=== PATIENT | female | born 1980 | race Caucasian/White ===

== ENCOUNTER 2017-06-09 10:14 | Emergency (ER) | payer MEDICAID ==
[~2017-06-09] VITALS: Ht 175.3 cm; Wt 56.7 kg
[2017-06-09 10:45] VITALS: BP 96/82
[2017-06-09] MEDS ORDERED: Morphine Sulfate 2mg/ml Inj IVP ONE (10:45)
[2017-06-09 11:02] LABS: EOSINOPHILS % (AUTO) 0.8 % (0.0-3.0); LYMPHOCYTES % (AUTO) 20.2 % (20.0-45.0); MEAN CORPUSCULAR HEMOGLOBIN 29.9 PG (27.0-31.0); MEAN CORPUSCULAR HGB CONC 31.6 G/DL (32.0-36.0); MEAN CORPUSCULAR VOLUME 95 FL (80-99); MEAN PLATELET VOLUME 8.1 FL (6.5-10.1); MONOCYTES % (AUTO) 7.9 % (1.0-10.0); NEUTROPHILS % (AUTO) 70.1 % (45.0-75.0); PLATELET COUNT 253 K/UL (150-450); RED BLOOD COUNT 4.53 M/UL (4.20-5.40); RED CELL DISTRIBUTION WIDTH 10.7 % (11.6-14.8); WHITE BLOOD COUNT 9.1 K/UL (4.8-10.8)
[2017-06-09 11:09] LABS: APPEARANCE,URINE CLEAR; KETONES,URINE 2+ (NEGATIVE); LEUKOCYTE ESTERASE ,URINE 1+ (NEGATIVE); NITRITE,URINE NEGATIVE (NEGATIVE); PH,URINE 7 (4.5-8.0); PROTEIN,URINE 1+ (NEGATIVE); UROBILINOGEN,URINE 1 MG/DL (0.0-1.0)
[2017-06-09 11:11] LABS: ANION GAP 8 mmol/L (5-15); CALCIUM 8.8 MG/DL (8.5-10.1); CARBON DIOXIDE 27 MMOL/L (21-32); CHLORIDE 106 MMOL/L (98-107); CREATININE 0.8 MG/DL (0.55-1.30); GLOMERULAR FILTRATION RATE > 60 mL/min (>60); SODIUM 141 MMOL/L (136-145)
[2017-06-09 11:17] LABS: PROTHROMBIN TIME 10.6 SEC (9.30-11.50)
[2017-06-09 11:22] LABS: RBC,URINE 0-2 /HPF (0 - 2)
[2017-06-09 11:23] LABS: BACTERIA,URINE FEW /HPF; MUCUS,URINE FEW /LPF (NONE/OCC); SQUAMOUS EPITHELIAL CELL,UR FEW /LPF (NONE/OCC)
[2017-06-09 11:24] LABS: ALANINE AMINOTRANSFERASE 24 U/L (12-78); ALBUMIN/GLOBULIN RATIO 1.2 (1.0-2.7); ASPARTATE AMINO TRANSFERASE 19 U/L (15-37); BILIRUBIN,DIRECT 0.2 MG/DL (0.0-0.3); LIPASE 149 U/L (73-393); TOTAL PROTEIN 7.4 G/DL (6.4-8.2)
[2017-06-09] MEDS ORDERED: BENTYL10 MG ORAL (12:02)
[2017-06-09 12:30] VITALS: BP 98/78
--- NOTE | 2017-06-11 11:37 | Cardiology Report ---
APPROVED REPORT EKG Measurement Heart [id number] Atrial fibrillation Abnormal ECG
--- NOTE | 2017-06-11 23:45 | Emergency Room Report ---
History of Present Illness General Chief Complaint: Abdominal Pain Source: Patient Present Illness HPI Patient is a 36-year-old female presented after increased abdominal discomfort. Patient had sudden onset of symptoms associated with some nausea. The patient been noted to be breast-feeding. She reports having increased epigastric pain which radiated to her back. She denies black or bloody stool or hematemesis. The pain was improved by abdominal pressure. She denied recent trauma. Allergies: Coded Allergies: CODEINE (Verified Allergy, Unknown, 06/09/17) Patient History Past Medical History: see triage record Past Surgical History: unable to obtain Now: No Reviewed Nursing Documentation: PMH: Agreed, PSxH: Agreed Nursing Documentation-PMH Past Medical History: No Stated History Review of Systems All Other Systems: negative except mentioned in HPI Physical Exam Vital Signs Date Time Temp Pulse Resp B/P (MAP) Pulse Ox O2 Delivery O2 Flow Rate FiO2 06/09/17 10:17 97.3 68 14 112/71 100 06/09/17 10:45 Room Air Sp02 EP Interpretation: reviewed, normal General Appearance: normal inspection, well appearing, no apparent distress, alert, GCS 15 Head: atraumatic ENT: normal ENT inspection, hearing grossly normal, normal voice Neck: normal inspection, full range of motion, supple, no bony tend Respiratory: normal inspection, lungs clear, normal breath sounds, no respiratory distress, no retraction, no wheezing Cardiovascular #1: regular rate, rhythm, no edema Gastrointestinal: normal inspection, normal bowel sounds, non tender, soft, no guarding, no hernia Genitourinary: no CVA tenderness Musculoskeletal: normal inspection, back normal, normal range of motion Neurologic: normal inspection, alert, oriented x3, responsive, fact checker III-XII nml as tested, speech normal Psychiatric: normal inspection, judgement/insight normal, mood/affect normal Skin: normal inspection, normal color, no rash Medical Decision Making Diagnostic Impression: Primary Impression: Abdominal pain ER Course Patient presented for abdominal pain. Differential diagnoses included ischemic bowel, appendicitis, perforated viscus, abdominal aortic aneurysm, inferior myocardial infarction, viral gastroenteritis. Because of complexity of patient' s case laboratory testing and imaging studies were ordered. The patient's troponin was noted to be normal. EKG interpreted by me showed ectopic atrial rhythm. With a rate approximately 60 without PVCs or ectopy. Troponin was negative.The patient refused IV nausea medications. The patient is advised to follow up with primary care doctor in 1-2 days. The patient is advised that she may need outpatient testing including ultrasound. Patient is advised to return if any worsening condition or if any changes in status that are concerning. Labs Test 06/09/17 10:40 06/09/17 10:50 White Blood Count 9.1 K/UL (4.8-10.8) Red Blood Count 4.53 M/UL (4.20-5.40) Hemoglobin 13.6 G/DL (12.0-16.0) Hematocrit 42.9 % (37.0-47.0) Mean Corpuscular Volume 95 FL (80-99) Mean Corpuscular Hemoglobin 29.9 PG (27.0-31.0) Mean Corpuscular Hemoglobin Concent 31.6 G/DL (32.0-36.0) Red Cell Distribution Width 10.7 % (11.6-14.8) Platelet Count 253 K/UL (150-450) Mean Platelet Volume 8.1 FL (6.5-10.1) Neutrophils (%) (Auto) 70.1 % (45.0-75.0) Lymphocytes (%) (Auto) 20.2 % (20.0-45.0) Monocytes (%) (Auto) 7.9 % (1.0-10.0) Eosinophils (%) (Auto) 0.8 % (0.0-3.0) Basophils (%) (Auto) 1.0 % (0.0-2.0) Prothrombin Time 10.6 SEC (9.30-11.50) Prothromb Time International Ratio 1.0 (0.9-1.1) Activated Partial Thromboplast Time 26 SEC (23-33) D-Dimer 0.26 mg/L FEU (0.00-0.49) Sodium Level 141 MMOL/L (136-145) Potassium Level 4.0 MMOL/L (3.5-5.1) Chloride Level 106 MMOL/L (98-107) Carbon Dioxide Level 27 MMOL/L (21-32) Anion Gap 8 mmol/L (5-15) Blood Urea Nitrogen 12 mg/dL (7-18) Creatinine 0.8 MG/DL (0.55-1.30) Estimat Glomerular Filtration Rate > 60 mL/min (>60) Glucose Level 87 MG/DL (74-106) Calcium Level 8.8 MG/DL (8.5-10.1) Total Bilirubin 1.4 MG/DL (0.2-1.0) Direct Bilirubin 0.2 MG/DL (0.0-0.3) Aspartate Amino Transf (AST/SGOT) 19 U/L (15-37) Alanine Aminotransferase (ALT/SGPT) 24 U/L (12-78) Alkaline Phosphatase 47 U/L (46-116) Troponin I 0.000 ng/mL (0.000-0.056) Total Protein 7.4 G/DL (6.4-8.2) Albumin 4.0 G/DL (3.4-5.0) Globulin 3.4 g/dL Albumin/Globulin Ratio 1.2 (1.0-2.7) Lipase 149 U/L (73-393) Urine Color Yellow Urine Appearance Clear Urine pH 7 (4.5-8.0) Urine Specific [place] 1.010 (1.005-1.035) Urine Protein 1+ (NEGATIVE) Urine Glucose (UA) Negative (NEGATIVE) Urine Ketones 2+ (NEGATIVE) Urine Occult Blood Negative (NEGATIVE) Urine Nitrite Negative (NEGATIVE) Urine Bilirubin Negative (NEGATIVE) Urine Urobilinogen 1 MG/DL (0.0-1.0) Urine Leukocyte Esterase 1+ (NEGATIVE) Urine RBC 0-2 /HPF (0 - 2) Urine WBC 2-4 /HPF (0 - 2) Urine Squamous Epithelial Cells Few /LPF (NONE/OCC) Urine Bacteria Few /HPF (NONE) Urine Mucus Few /LPF (NONE/OCC) EKG Diagnostic Results Rhythm: NSR ST Segments: no acute changes Rhythm Strip Diag. Results EP Interpretation: yes Rhythm: NSR, no PVC's, no ectopy Last Vital Signs Date Time Temp Pulse Resp B/P (MAP) Pulse Ox O2 Delivery O2 Flow Rate FiO2 06/09/17 12:30 97.3 64 14 98/78 98 Room Air Status: improved Disposition: HOME, SELF-CARE Condition: Stable Scripts Dicyclomine Hcl* (BENTYL*) 10 Mg Capsule 10 MG ORAL FOUR TIMES A DAY, #30 CAP Prov: Hardeep Gomez 06/09/17 Patient Instructions: Abdominal Pain, Adult Hardeep Gomez Jun 11, 2017 23:45
== END 2017-06-09 12:30 | disposition home or self-care (01) ==
LOC: EMR 10:41
DX: R10.9 Unspecified abdominal pain (principal); Z88.6 Allergy status to analgesic agent
CPT/HCPCS: 36415; 80053; 81003; 82248; 83690; 84484; 85025; 85379; 85610; 85730; 93005; 99283; J2405

== ENCOUNTER 2017-10-14 07:39 | Emergency (ER) | payer MEDICAID ==
[~2017-10-14] VITALS: Ht 175.3 cm; Wt 58.5 kg
[~2017-10-14 07:39] MED LIST: BENTYL10 MG ORAL
[2017-10-14] MEDS ORDERED: NKM (07:46)
[2017-10-14] MEDS ORDERED: Acetaminophen 500mg (ES) tab ORAL ONE (09:15)
[2017-10-14 09:21] LABS: HEMOGLOBIN 14.7 G/DL (12.0-16.0); MEAN CORPUSCULAR VOLUME 91 FL (80-99); PLATELET COUNT 219 K/UL (150-450); RED BLOOD COUNT 4.52 M/UL (4.20-5.40); RED CELL DISTRIBUTION WIDTH 10.3 % (11.6-14.8); WHITE BLOOD COUNT 11.3 K/UL (4.8-10.8)
[2017-10-14 09:26] LABS: ANION GAP 12 mmol/L (5-15); BLOOD UREA NITROGEN 18 mg/dL (7-18); CALCIUM 8.6 MG/DL (8.5-10.1); CARBON DIOXIDE 23 MMOL/L (21-32); CHLORIDE 102 MMOL/L (98-107); CREATININE 0.8 MG/DL (0.55-1.30); POTASSIUM 3.6 MMOL/L (3.5-5.1); SODIUM 137 MMOL/L (136-145)
[2017-10-14 09:37] LABS: ALANINE AMINOTRANSFERASE 28 U/L (12-78); ALBUMIN 4.1 G/DL (3.4-5.0); ALBUMIN/GLOBULIN RATIO 1.2 (1.0-2.7); ALKALINE PHOSPHATASE 53 U/L (46-116); ASPARTATE AMINO TRANSFERASE 17 U/L (15-37); BILIRUBIN,DIRECT 0.2 MG/DL (0.0-0.3)
[2017-10-14] MEDS ORDERED: DiphenhydrAMINE 50mg/ml Inj IVP ONE (10:00)
[2017-10-14 10:29] LABS: APPEARANCE,URINE SLIGHTLY CLOUDY; BILIRUBIN, URINE NEGATIVE (NEGATIVE); GLUCOSE, URINE (UA) NEGATIVE (NEGATIVE); KETONES,URINE 4+ (NEGATIVE); LEUKOCYTE ESTERASE ,URINE 1+ (NEGATIVE); NITRITE,URINE NEGATIVE (NEGATIVE); PH,URINE 6 (4.5-8.0); PROTEIN,URINE 1+ (NEGATIVE); UROBILINOGEN,URINE NORMAL MG/DL (0.0-1.0)
[2017-10-14 10:33] LABS: COLOR,URINE YELLOW
[2017-10-14] MEDS ORDERED: Ketorolac 30mg Inj IV ONE (10:45)
[2017-10-14 11:54] VITALS: BP 98/66
[2017-10-14] MEDS ORDERED: ZOFRAN ODT4 MG ORAL (11:59)
--- NOTE | 2017-10-14 11:59 | Emergency Room Report ---
History of Present Illness General Chief Complaint: Vomiting Source: Patient Present Illness HPI This patient states that she has had vomiting and diarrhea for the past 2 days. She states that symptoms started with recurrent watery diarrhea. She does associate the symptoms starting after she had an omelette at a restaurant previously. There are no other family members with the same symptoms, although , there has been some mild diarrhea in other family members. She states that she was up all night last night vomiting. She does smoke marijuana daily. She states she hasn't smoked in the past 3 days. She has never had cyclic vomiting related to marijuana use in the past. She denies fever. She denies abdominal pain. She denies chest pain or shortness of breath. She states that she also developed a migraine. She does have a history of migraines. She has no other complaints. Allergies: Coded Allergies: CODEINE (Verified Allergy, Unknown, 06/09/17) Patient History Past Medical History: none Past Surgical History: other - Breast augmentation, bunionectomy, Social History: Reports: drug use Last Menstrual Period: 10/10/17 Reviewed Nursing Documentation: PMH: Agreed; PSxH: Agreed Nursing Documentation-PMH Past Medical History: No Stated History Review of Systems All Other Systems: negative except mentioned in HPI Physical Exam Vital Signs Date Time Temp Pulse Resp B/P (MAP) Pulse Ox O2 Delivery O2 Flow Rate FiO2 10/14/17 07:43 98.1 101 18 112/76 96 Room Air 98.1 Sp02 EP Interpretation: reviewed, normal General Appearance: no apparent distress, alert, GCS 15, non-toxic Head: normocephalic, atraumatic Eyes: bilateral eye normal inspection, bilateral eye PERRL ENT: hearing grossly normal, normal pharynx, no angioedema, normal voice Neck: full range of motion, supple/symm/no masses Respiratory: chest non-tender, lungs clear, normal breath sounds, speaking full sentences Cardiovascular #1: regular rate, rhythm, no edema Gastrointestinal: normal bowel sounds, non tender, soft, non-distended, no guarding, no rebound Rectal: deferred Musculoskeletal: back normal, gait/station normal, normal range of motion, non- tender Neurologic: alert, oriented x3, responsive, motor strength/tone normal, sensory intact, speech normal Psychiatric: judgement/insight normal, memory normal, mood/affect normal, no suicidal/homicidal ideation Skin: normal color, no rash, warm/dry, well hydrated Medical Decision Making Diagnostic Impression: Primary Impression: Vomiting Additional Impressions: Diarrhea Migraine ER Course This patient has a clinical presentation consistent with gastroenteritis. The patient's abdominal exam was benign. I do not suspect cholecystitis, pancreatitis, appendicitis or diverticulitis based on history and physical and laboratory workup. This is likely viral in etiology. The patient is nontoxic and nonsurgical at this time. The patient also has her typical migraine. The patient was treated with Toradol and 1 liter of normal saline. The patient declined Compazine secondary to still breast-feeding. The patient had significant improvement of the headache. There were no red flags on physical exam or history. I do not suspect meningitis, intracranial bleed, sinusitis. No emergency medical condition was identified. The patient was given return precautions and followup instructions.The patient was given return precautions and followup instructions. Laboratory Tests Test 10/14/17 09:00 10/14/17 10:20 White Blood Count 11.3 K/UL (4.8-10.8) H Red Blood Count 4.52 M/UL (4.20-5.40) Hemoglobin 14.7 G/DL (12.0-16.0) Hematocrit 41.0 % (37.0-47.0) Mean Corpuscular Volume 91 FL (80-99) Mean Corpuscular Hemoglobin 32.5 PG (27.0-31.0) H Mean Corpuscular Hemoglobin Concent 35.9 G/DL (32.0-36.0) Red Cell Distribution Width 10.3 % (11.6-14.8) L Platelet Count 219 K/UL (150-450) Mean Platelet Volume 9.4 FL (6.5-10.1) Neutrophils (%) (Auto) % (45.0-75.0) Lymphocytes (%) (Auto) % (20.0-45.0) Monocytes (%) (Auto) % (1.0-10.0) Eosinophils (%) (Auto) % (0.0-3.0) Basophils (%) (Auto) % (0.0-2.0) Differential Total Cells Counted 100 Neutrophils % (Manual) 89 % (45-75) H Lymphocytes % (Manual) 9 % (20-45) L Monocytes % (Manual) 2 % (1-10) Eosinophils % (Manual) 0 % (0-3) Basophils % (Manual) 0 % (0-2) Band Neutrophils 0 % (0-8) Platelet Estimate Adequate Platelet Morphology Normal Sodium Level 137 MMOL/L (136-145) Potassium Level 3.6 MMOL/L (3.5-5.1) Chloride Level 102 MMOL/L (98-107) Carbon Dioxide Level 23 MMOL/L (21-32) Anion Gap 12 mmol/L (5-15) Blood Urea Nitrogen 18 mg/dL (7-18) Creatinine 0.8 MG/DL (0.55-1.30) Estimate Glomerular Filtration Rate > 60 mL/min (>60) Glucose Level 107 MG/DL (74-106) H Calcium Level 8.6 MG/DL (8.5-10.1) Total Bilirubin 2.0 MG/DL (0.2-1.0) H Direct Bilirubin 0.2 MG/DL (0.0-0.3) Aspartate Amino Transferase (AST) 17 U/L (15-37) Alanine Aminotransferase (ALT) 28 U/L (12-78) Alkaline Phosphatase 53 U/L (46-116) Total Protein 7.4 G/DL (6.4-8.2) Albumin 4.1 G/DL (3.4-5.0) Globulin 3.3 g/dL Albumin/Globulin Ratio 1.2 (1.0-2.7) Lipase 98 U/L (73-393) Human Chorionic Gonadotropin, Qual Negative Urine Color Yellow Urine Appearance Slightly cloudy Urine pH 6 (4.5-8.0) Urine Specific [place] 1.030 (1.005-1.035) Urine Protein 1+ (NEGATIVE) H Urine Glucose (UA) Negative (NEGATIVE) Urine Ketones 4+ (NEGATIVE) H Urine Occult Blood 2+ (NEGATIVE) H Urine Nitrite Negative (NEGATIVE) Urine Bilirubin Negative (NEGATIVE) Urine Urobilinogen Normal MG/DL (0.0-1.0) Urine Leukocyte Esterase 1+ (NEGATIVE) H Urine RBC 0-2 /HPF (0 - 2) Urine WBC 2-4 /HPF (0 - 2) Urine Squamous Epithelial Cells Moderate /LPF (NONE/OCC) H Urine Bacteria Moderate /HPF (NONE) H Urine HCG, Qualitative Negative (NEGATIVE) EKG Diagnostic Results Other Impression Patient declined EKG. Rhythm Strip Diag. Results EP Interpretation: yes Rate: 60's Rhythm: NSR, no PVC's, no ectopy Last Vital Signs Date Time Temp Pulse Resp B/P (MAP) Pulse Ox O2 Delivery O2 Flow Rate FiO2 10/14/17 07:43 98.1 101 18 112/76 96 Room Air 98.1 Disposition: HOME, SELF-CARE Condition: Improved Scripts Ondansetron Odt* (ZOFRAN ODT*) 4 Mg Tab.rapdis 4 MG ORAL Q6H PRN for Nausea & Vomiting, #10 TAB 0 Refills Prov: MADDI SORTO D.O. 10/14/17 Referrals: NON PHYSICIAN (PCP) Patient Instructions: Viral Gastroenteritis, Adult, [id number] MADDI SORTO D.O. Oct 14, 2017 11:59
[2017-10-14 12:21] VITALS: BP 98/66
== END 2017-10-14 12:17 | disposition home or self-care (01) ==
LOC: EMR 08:27
DX: R11.10 Vomiting, unspecified (principal); R19.7 Diarrhea, unspecified; G43.909 Migraine, unspecified, not intractable, without status migrainosus; Z88.5 Allergy status to narcotic agent
CPT/HCPCS: 36415; 80053; 81003; 81025; 82248; 83690; 84703; 85007; 85025; 87086; 96361; 96374; 96375; 99284; J1885; J2405

== ENCOUNTER 2019-08-20 22:50 | Emergency (ER) | payer MEDICAID ==
[~2019-08-20] VITALS: Ht 175.3 cm; Wt 54.4 kg
[~2019-08-20 22:50] MED LIST changes: +AUGMENTIN 875-1 EAC1 ORAL; +EXCEDRIN MIGRA1 EACH PO; +NKM; +ROBAXIN-750750 MG PO; +ZOFRAN ODT4 MG ORAL; +ZYRTEC-D TABLE1 EACH ORAL
[2019-08-20 23:20] VITALS: BP 111/70
--- NOTE | 2019-08-20 23:20 | NUR ---
ED Nurse Note: Pt walke din to ED c/o cluster headache x 1 day. Reports that she couldnt sleep and photosensitivity. Denies vomiting. Not in any distress. Afebrile. VSS.
[2019-08-20] MEDS ORDERED: Metoclopramide 10mg/2ml Inj IVP ONE (23:45)
[2019-08-20] MEDS ORDERED: Acetaminophen 500mg (ES) tab ORAL ONE (23:45)
[2019-08-20] MEDS ORDERED: Morphine Sulfate 4mg/ml Inj (IV USE ONLY) IVP ONE (23:45)
[2019-08-21] MEDS ORDERED: FIORICET1 EA ORAL (01:00)
[2019-08-21 01:08] VITALS: BP 111/70
--- NOTE | 2019-08-21 01:08 | NUR ---
ED Nurse Note: Pt cleared by ERMD for discharge. DC instructions/prescription was given and explained to pt and verbalized understanding of teachings. All medical deviecs such as ID band and IV line removed. Pt is AAO x4, ambulatory and left with all personal belongings.
--- NOTE | 2019-08-21 01:49 | Emergency Room Report ---
History of Present Illness General Chief Complaint: Headache Source: Patient Present Illness HPI 39-year-old female presents ED complaining of headache x1 week. History of cluster headaches. States she has not had an episode in years. Pain is throbbing, 9 out of 10, nonradiating. Denies neck stiffness. Denies fevers or chills. Denies blurry vision. Notes photophobia. Took Excedrin at home without improvement. Denies nausea or vomiting. No other aggravating relieving factors. Denies any other associated symptoms Allergies: Coded Allergies: CODEINE (Verified Allergy, Unknown, 06/09/17) Patient History Past Medical History: migraines Past Surgical History: none Pertinent Family History: none Social History: Denies: smoking, alcohol use, drug use Last Menstrual Period: 08/05/19 Now: No Immunizations: UTD Reviewed Nursing Documentation: PMH: Agreed; PSxH: Agreed Nursing Documentation-PMH Past Medical History: No History, Except For Review of Systems All Other Systems: negative except mentioned in HPI Physical Exam Vital Signs Date Time Temp Pulse Resp B/P (MAP) Pulse Ox O2 Delivery O2 Flow Rate FiO2 08/20/19 23:14 98.8 88 16 111/70 (84) 96 Room Air Sp02 EP Interpretation: reviewed, normal General Appearance: no apparent distress, alert, GCS 15, non-toxic Head: normocephalic, atraumatic Eyes: bilateral eye normal inspection, bilateral eye PERRL, bilateral eye EOMI , bilateral eye photophobia, bilateral eye visual acuity ENT: hearing grossly normal, normal pharynx, no angioedema, normal voice Neck: full range of motion, supple/symm/no masses Respiratory: chest non-tender, lungs clear, normal breath sounds, speaking full sentences Cardiovascular #1: regular rate, rhythm, no edema Cardiovascular #2: 2+ carotid (R), 2+ carotid (L), 2+ radial (R), 2+ radial (L) , 2+ dorsalis pedis (R), 2+ dorsalis pedis (L) Gastrointestinal: normal bowel sounds, non tender, soft, non-distended, no guarding, no rebound Rectal: deferred Genitourinary: normal inspection, no CVA tenderness Musculoskeletal: back normal, normal range of motion, gait/station normal, non- tender Neurologic: alert, motor strength/tone normal, oriented x3, sensory intact, responsive, speech normal Psychiatric: judgement/insight normal, memory normal, mood/affect normal, no suicidal/homicidal ideation Reflexes: 3+ bicep (R), 3+ bicep (L), 3+ tricep (R), 3+ tricep (L), 3+ knee (R) , 3+ knee (L) Skin: no rash Lymphatic: no adenopathy Medical Decision Making Diagnostic Impression: Primary Impression: Headache Qualified Codes: R51 - Headache ER Course Hospital Course 39-year-old female presents with headache. History of cluster headaches Differential diagnoses include: tension headache, migraine, dehydration, intracranial bleed Clinical course Patient placed on stretcher. After initial history and physical I ordered labs , IV fluids, Reglan, tylenol and morphine Upon reassessment patient states pain has improved. Patient feels better wishes to go home. Given the lack of fever, nuchal rigidity or neurological findings my suspicion for intracranial pathology is low patient be safely discharged to home. I will provide referrals i. I feel this is a highly complex case requiring extensive working including EKG/Rhythm strip, Xray/CT/US, Blood/urine lab work, repeat exams while in ED, and administration of strong opiates/narcotics for pain control, admission to hospital or close patient follow up. Diagnosis - headache stable and discharged to home with Fioricet. f/up with PMD. return to ED if symptoms recur/worsen. Last Vital Signs Date Time Temp Pulse Resp B/P (MAP) Pulse Ox O2 Delivery O2 Flow Rate FiO2 08/21/19 01:08 98.8 88 16 111/70 96 Room Air Status: improved Disposition: HOME, SELF-CARE Condition: Stable Scripts Acetamin/Butalbital/Caffeine* (FIORICET*) 1 Ea Tab 1 TAB ORAL Q6H, #15 TAB 0 Refills Prov: Eladio Mccollum MD 08/21/19 Referrals: yAdee Martinez [facility] Patient Instructions: Cluster Headache Eladio Mccollum MD Aug 21, 2019 01:49
== END 2019-08-21 01:08 | disposition home or self-care (01) ==
LOC: EMR 23:59
DX: R51 Headache (principal); Z88.6 Allergy status to analgesic agent
CPT/HCPCS: 96361; 96374; 96375; J2270; J2765; J7030; Z7502; 99284

== ENCOUNTER 2020-05-26 08:30 | Emergency (ER) | payer MEDICAID ==
[~2020-05-26] VITALS: Ht 175.3 cm; Wt 56.7 kg
[~2020-05-26 08:30] MED LIST changes: +FIORICET1 EA ORAL
[2020-05-26 08:33] VITALS: BP 120/69
--- NOTE | 2020-05-26 08:38 | NUR ---
ED Nurse Note: Patient from home and came in due to medication refill of Adderall 20mg and Vyvanse 40mg. Denies any pain. AAO x4 and ambulatory.
--- NOTE | 2020-05-26 08:47 | NUR ---
ED Nurse Note: pt. walked out from the emergency room after talking to Dr. Gomez.
--- NOTE | 2020-05-26 08:49 | Emergency Room Report ---
History of Present Illness General Chief Complaint: Medication Refill Source: Patient Present Illness HPI Patient is a 39-year-old female presents for medication refill on Vyvanse and Adderall. Patient states that she is unable to see her psychiatrist anymore. She had previously been on Vyvanse. Denies having any acute complaints. Patient had previously been prescribed Vyvanse by her psychiatrist. Allergies: Coded Allergies: CODEINE (Verified Allergy, Unknown, 06/09/17) COVID-19 Screening Contact w/high risk pt: No Experienced COVID-19 symptoms?: No COVID-19 Testing performed HOT DOG VENDOR: Yes COVID-19 Screening: Negative COVID-19 COVID-19 Testing Source: 02/2020 Patient History Past Medical History: see triage record Last Menstrual Period: 05/15/20 Now: No Reviewed Nursing Documentation: PMH: Agreed; PSxH: Agreed Nursing Documentation-PMH Past Medical History: No Stated History Review of Systems All Other Systems: negative except mentioned in HPI Physical Exam Vital Signs Date Time Temp Pulse Resp B/P (MAP) Pulse Ox O2 Delivery O2 Flow Rate FiO2 05/26/20 08:33 98.2 99 16 120/69 99 Room Air General Appearance: well appearing, no apparent distress, alert, GCS 15 Head: normocephalic, atraumatic ENT: hearing grossly normal, normal voice Neck: full range of motion, supple Respiratory: lungs clear, normal breath sounds, no respiratory distress, speaking full sentences Cardiovascular #1: normal inspection, no edema Gastrointestinal: normal inspection, soft Musculoskeletal: normal inspection Neurologic: alert, motor strength/tone normal, fleet service clerk III-XII nml as tested, oriented x3, normal gait Psychiatric: mood/affect normal Skin: no rash Medical Decision Making Diagnostic Impression: Primary Impression: Encounter for medication refill ER Course Patient presented for medication refill of scheduled medication. Differential diagnosis include was not limited to medication refill request. Patient does not appear to have any acute medical condition. I advised the patient that we do not refill patient's controlled substances. She was offered referrals for outpatient psychiatric treatment. Patient declined. Patient subsequent left the hospital without waiting for discharge papers or referrals. This medical record is generated with babbel beam doffer software. There may be some beam doffer discrepancies related to use of this software. Last Vital Signs Date Time Temp Pulse Resp B/P (MAP) Pulse Ox O2 Delivery O2 Flow Rate FiO2 05/26/20 08:33 98.2 99 16 120/69 (86) 99 Room Air Status: improved Disposition: HOME, SELF-CARE Condition: Stable Hardeep Gomez MD May 26, 2020 08:49
[2020-05-26 08:50] VITALS: BP 120/69
--- NOTE | 2020-05-26 08:50 | NUR ---
ED Nurse Note: pt. walked out of ER after speaking to Dr. Gomez. no s/s of acute distress noted upon leaving. pt. left with all her belongings
== END 2020-05-26 08:50 | disposition left against medical advice (07) ==
LOC: EMR 08:48
DX: Z76.0 Encounter for issue of repeat prescription (principal); Z88.6 Allergy status to analgesic agent
CPT/HCPCS: 99282

== ENCOUNTER 2020-09-22 14:01 | Emergency (ER) | payer MEDICAID ==
[~2020-09-22] VITALS: Ht 167.6 cm; Wt 58.1 kg
[2020-09-22 14:08] VITALS: BP 120/78
--- NOTE | 2020-09-22 14:12 | NUR ---
pt arrives to ER with complaints of right ankle pain after falling from standing position. pt states falling [place] bench in the park yesterday. pt states pain with movement and stiffness in extremity. pt states applying RICE intervention yesterday without relief. pt states noticing minor swelling to extremity. pt able to bear weight on extremity at this time.
--- NOTE | 2020-09-22 14:17 | Emergency Room Report ---
History of Present Illness General Chief Complaint: Lower Extremity Injury Source: Patient Present Illness HPI Disclaimer: Please note that this report is being documented using DRAGON technology. This can lead to erroneous entry secondary to incorrect interpretation by the dictating instrument. HPI: 40-year-old female presents with right ankle pain. Yesterday she was walking in the park tripped fell striking the lateral portion of the right ankle against a metal bench. Noted pain and swelling throughout the day yesterday she applied ice and elevated. Worsening pain today. She is able to bear weight though states it is very painful to do so. Denies pain in the foot or swelling in the foot. No other injury sustained. No prior history of injury to the right ankle. PMH: Reviewed PSH: Reviewed Allergies: Codeine Social Hx: Reviewed Allergies: Coded Allergies: CODEINE (Verified Allergy, Unknown, 06/09/17) COVID-19 Screening Contact w/high risk pt: No Experienced COVID-19 symptoms?: No COVID-19 Testing performed EDUCATION REP: No COVID-19 Screening: Negative COVID-19 Patient History Last Menstrual Period: Now: No Nursing Documentation-PMH Hx Cardiac Problems: No Hx Hypertension: No Hx Pacemaker: No Hx Asthma: No Hx COPD: No Hx Diabetes: No Hx Cancer: No Hx Gastrointestinal Problems: No Hx Dialysis: No History Of Psychiatric Problem: No Hx Neurological Problems: No Hx Cerebrovascular Accident: No Hx Seizures: No Review of Systems All Other Systems: negative except mentioned in HPI Physical Exam Vital Signs Date Time Temp Pulse Resp B/P (MAP) Pulse Ox O2 Delivery O2 Flow Rate FiO2 09/22/20 14:08 99.1 107 18 120/78 (92) 100 Room Air General: Awake and alert, no acute distress HEENT: NC/AT. EOMI. Resp: Normal work of breathing Skin: Intact. No abrasions, laceration or rash over the exposed skin MSK: Normal tone and bulk. Moving all extremities. No obvious deformity. No edema. Minor abrasion over the right lateral malleolus. Full range of motion on plantarflexion, dorsiflexion, inversion and eversion. Able to move all digits. No midfoot tenderness. No tenderness over the medial malleolus but there is some tenderness over the posterior aspect of the right lateral malleolus. Neuro: Awake and alert. Mentating appropriately Medical Decision Making ER Course 40-year-old female presents with right ankle pain after striking it against a metal bench and falling yesterday. Obtained x-rays there was pain over the posterior aspect of the lateral malleolus. X-ray does not show obvious fracture dislocation. Likely contusion and may be minor sprain. Placed in Sukumar wrap for comfort and stability. We will continue with RICE treatment methods at home. Follow-up with PMD as needed. Other X-Ray Diagnostic Results Other X-Ray Diagnostic Results : X-Ray ordered: Right ankle # of Views/Limited Vs Complete: 3 View Indication: Pain EP Interpretation: Yes Interpretation: no dislocation, no soft tissue swelling, no fractures Impression: No acute disease Electronically Signed by: Electronically signed by Dr. Jung Zhu MD Last Vital Signs Date Time Temp Pulse Resp B/P (MAP) Pulse Ox O2 Delivery O2 Flow Rate FiO2 09/22/20 14:08 99.1 107 18 120/78 (92) 100 Room Air Disposition: HOME, SELF-CARE Condition: Stable Jung Zhu MD Sep 22, 2020 14:17
--- NOTE | 2020-09-22 15:01 | Diagnostic Imaging Report ---
EXAM: XR Right Ankle Complete, 3 or More Views CLINICAL HISTORY: INJ TECHNIQUE: Frontal, lateral and oblique views of the right ankle. COMPARISON: No relevant prior studies available. FINDINGS: Bones/joints: No acute fracture. Soft tissues: No radiodense foreign body. IMPRESSION: No acute fracture.
== END 2020-09-22 15:02 | disposition home or self-care (01) ==
LOC: EMR 14:29
DX: M25.571 Pain in right ankle and joints of right foot (principal); Z88.6 Allergy status to analgesic agent; W01.198A Fall on same level from slipping, tripping and stumbling with subsequent striking against other object, initial encounter; Y92.830 Public park as the place of occurrence of the external cause
CPT/HCPCS: 73610; Z7502; 99283